=== PATIENT | female | born 1960 | race African-American/Black ===

== ENCOUNTER 2020-02-23 21:58 | Inpatient (IN) | payer BC ==
[2020-02-23] MEDS ORDERED: ALPRAZolam 1 MG TABLET PO PRN (22:17)
[2020-02-23] MEDS ORDERED: ALPRAZolam 0.25 MG TABLET ONE (22:23)
[2020-02-23 23:11] LABS: ALBUMIN 3.3 g/dl (3.4-5.0); BILIRUBIN,TOTAL 0.5 mg/dl (0.2-1); CALCIUM 8.4 mg/dl (8.5-10); CREATININE 1.1 mg/dl (0.55-1.3); POTASSIUM 3.8 mmol/L (3.5-5.1); TOT PROT 6.2 g/dl (6.4-8.2)
[2020-02-23 23:27] LABS: EOS % 0.8 % (0-4.5); HEMATOCRIT 40.5 % (32.4-45.2); HEMOGLOBIN 12.4 GM/dl (10.7-15.3); LYMPH % 19.2 % (8-40); MCH 24.7 pg (25.7-33.7); MCHC 30.5 g/dl (32.0-36.0); MONO % 11.2 % (3.8-10.2); NEUT % 67.8 % (42.8-82.8); PLATELET COUNT 222 K/MM3 (134-434); RDW 15.1 % (11.6-15.6); WHITE BLOOD COUNT 5.2 K/mm3 (4.0-10.8)
[2020-02-24 01:41] VITALS: BMI 39.9
[2020-02-24] MEDS ORDERED: metFORMIN HCL 500 MG TABLET (FP) PO SCH (07:00)
[2020-02-24 08:59] LABS: CALCIUM 8.2 mg/dl (8.5-10); POTASSIUM 4.3 mmol/L (3.5-5.1)
[2020-02-24 10:27] LABS: BASO % 0.8 % (0-2.0); HEMATOCRIT 39.3 % (32.4-45.2); HEMOGLOBIN 12.3 GM/dl (10.7-15.3); MCH 25.3 pg (25.7-33.7); MCHC 31.2 g/dl (32.0-36.0); MEAN CELL VOLUME 80.9 fl (80-96); MEAN PLT VOLUME 8.7 fl (7.5-11.1); MONO % 13.4 % (3.8-10.2); NEUT % 57.8 % (42.8-82.8); PLATELET COUNT 207 K/MM3 (134-434); RBC 4.86 M/mm3 (3.60-5.2); RDW 14.6 % (11.6-15.6); WHITE BLOOD COUNT 4.5 K/mm3 (4.0-10.8)
[2020-02-24] MEDS: ENOXAPARIN NA (PORCINE) 40 MG/0.4 ML DISP.SYRIN SQ SCH (10:40)
[2020-02-24] MEDS: INSULIN SLIDING SCALE (NOVOLOG) 1 VIAL SQ SCH ×3 (11:28→21:58)
[2020-02-24 11:49] LABS: N-TERMINAL BNP 597.6 pg/ml (5-125)
[2020-02-24] MEDS ORDERED: ALPRAZolam 0.25 MG TABLET PO ONE (14:35)
[2020-02-24] MEDS: ASPIRIN COATED 81 MG TABLET.EC PO SCH (15:00)
[2020-02-24] MEDS: metoPROLOL SUCCINATE 25 MG TAB.SR.24H (FP) PO SCH (15:00)
[2020-02-24] MEDS ORDERED: ROSUVASTATIN CA 10 MG TABLET (FP) PO SCH (22:00)
[2020-02-24] MEDS ORDERED: MONTELUKAST NA 10 MG TABLET PO SCH (22:00)
[2020-02-25] MEDS: INSULIN SLIDING SCALE (NOVOLOG) 1 VIAL SQ SCH ×3 (06:05→16:18)
[2020-02-25 08:51] LABS: MCH 25.3 pg (25.7-33.7); MCHC 31.6 g/dl (32.0-36.0); MEAN CELL VOLUME 80.1 fl (80-96); MEAN PLT VOLUME 8.9 fl (7.5-11.1); PLATELET COUNT 200 K/MM3 (134-434); RBC 4.74 M/mm3 (3.60-5.2); RDW 14.8 % (11.6-15.6); WHITE BLOOD COUNT 4.9 K/mm3 (4.0-10.8)
[2020-02-25] MEDS: ASPIRIN COATED 81 MG TABLET.EC PO SCH (09:04)
[2020-02-25] MEDS: ROSUVASTATIN CA 20 MG TABLET (FP) PO SCH (09:04)
[2020-02-25] MEDS: metoPROLOL SUCCINATE 25 MG TAB.SR.24H (FP) PO SCH (09:04)
[2020-02-25] MEDS: MULTIVITAMINS THER W-MINERALS COMBO TABLET (FP) PO SCH (09:04)
[2020-02-25] MEDS: ENOXAPARIN NA (PORCINE) 40 MG/0.4 ML DISP.SYRIN SQ SCH (09:04)
[2020-02-25] MEDS ORDERED: SODIUM CHLORIDE 1,000 ML IV SCH (17:45)
[2020-02-26] MEDS: INSULIN SLIDING SCALE (NOVOLOG) 1 VIAL SQ SCH ×3 (06:03→21:22)
[2020-02-26 08:34] LABS: BILIRUBIN,TOTAL 0.4 mg/dl (0.2-1); CALCIUM 8.5 mg/dl (8.5-10); CREATININE 1.1 mg/dl (0.55-1.3); MAGNESIUM 1.9 mg/dL (1.8-2.4); POTASSIUM 4.5 mmol/L (3.5-5.1); TOT PROT 5.7 g/dl (6.4-8.2)
[2020-02-26 09:19] LABS: BASO % 1.3 % (0-2.0); EOS % 2.6 % (0-4.5); LYMPH % 30.3 % (8-40); MCH 25.6 pg (25.7-33.7); MCHC 31.3 g/dl (32.0-36.0); MEAN CELL VOLUME 81.9 fl (80-96); MEAN PLT VOLUME 9.1 fl (7.5-11.1); MONO % 13.6 % (3.8-10.2); NEUT % 52.2 % (42.8-82.8); PLATELET COUNT 208 K/MM3 (134-434); RBC 4.64 M/mm3 (3.60-5.2); RDW 14.8 % (11.6-15.6); WHITE BLOOD COUNT 4.6 K/mm3 (4.0-10.8)
[2020-02-26 09:23] LABS: HEMOGLOBIN 11.9 GM/dl (10.7-15.3)
[2020-02-26] MEDS: ENOXAPARIN NA (PORCINE) 40 MG/0.4 ML DISP.SYRIN SQ SCH ×2 (10:00→16:03)
[2020-02-26] MEDS: ROSUVASTATIN CA 20 MG TABLET (FP) PO SCH ×2 (10:00→15:59)
[2020-02-26] MEDS: ASPIRIN COATED 81 MG TABLET.EC PO SCH ×2 (10:00→15:52)
[2020-02-26] MEDS: MULTIVITAMINS THER W-MINERALS COMBO TABLET (FP) PO SCH ×2 (10:01→16:00)
[2020-02-26] MEDS: metoPROLOL SUCCINATE 25 MG TAB.SR.24H (FP) PO SCH (10:01)
[2020-02-26] MEDS: VALSARTAN 40 MG TABLET PO SCH (16:05)
[2020-02-27] MEDS: INSULIN SLIDING SCALE (NOVOLOG) 1 VIAL SQ SCH (06:51)
[2020-02-27] MEDS ORDERED: metoPROLOL SUCCINATE 25 MG TAB.SR.24H (FP) PO SCH (09:15)
[2020-02-27 09:47] VITALS: BP 134/81; PULSE 105; TEMP 98
[2020-02-27] MEDS: VALSARTAN 40 MG TABLET PO SCH (09:48)
[2020-02-27] MEDS: ROSUVASTATIN CA 20 MG TABLET (FP) PO SCH (09:49)
[2020-02-27] MEDS: MULTIVITAMINS THER W-MINERALS COMBO TABLET (FP) PO SCH (09:49)
[2020-02-27] MEDS: ASPIRIN COATED 81 MG TABLET.EC PO SCH (09:49)
[2020-02-27] MEDS: ENOXAPARIN NA (PORCINE) 40 MG/0.4 ML DISP.SYRIN SQ SCH (09:50)
== END 2020-02-27 11:46 | disposition home or self-care (01) | DRG 303 ==
LOC: FER 21:58 → FM/S 23:37 → UNDOADMIN 02-24 00:06 → FM/S 02-24 00:06
PROVIDERS: ADMIT Internal Medicine; ATTEND Nurse Practitioner Acute Care
DX: I25.5 Ischemic cardiomyopathy (principal); R00.0 Tachycardia, unspecified; R94.31 Abnormal electrocardiogram [ECG] [EKG]; R06.02 Shortness of breath; E11.9 Type 2 diabetes mellitus without complications; R07.9 Chest pain, unspecified; E66.9 Obesity, unspecified; E78.00 Pure hypercholesterolemia, unspecified; Z68.39 Body mass index [BMI] 39.0-39.9, adult
CPT/HCPCS: 36415; 71045-TC-FY; 71275-TC; 78452-TC; 80048; 80053; 82550; 82962; 83036; 83735; 83880; 84443; 84484; 85025; 85027; 85379; 93005; 93017; 93306-TC; 93970-TC; 99285-25; A9502; C9803; Q9967; U0003

== ENCOUNTER 2023-12-31 11:01 | Emergency (ER) | payer BC ==
[2023-12-31 11:20] VITALS: BP 107/68; PULSE 91; RESP 18; TEMP 98.1; BMI 35.2
[2023-12-31] MEDS ORDERED: ACETAMINOPHEN 1000 MG/100 ML BAG IVPB ONE (11:22)
[2023-12-31] MEDS ORDERED: FAMOTIDINE 20 MG/50 ML IVPB 20 MG/50 ML MG IVPB ONE (11:22)
[2023-12-31] MEDS ORDERED: MAG HYDROX/AL HYDROX/SIMETH 30 ML UNIT-DOSE CUP PO ONE (11:22)
[2023-12-31 12:12] LABS: HEMATOCRIT 45.1 % (32.4-45.2); HEMOGLOBIN 13.7 G/dL (10.7-15.3); MCH 26.8 pg (25.7-33.7); MCHC 30.3 g/dl (32.0-36.0); MEAN CELL VOLUME 88.4 fl (80-96); MEAN PLT VOLUME 8.6 fl (7.5-11.1); PLATELET COUNT 217.9 10^3/uL (134-434); RDW 15.7 % (11.6-15.6); WHITE BLOOD COUNT 5.8 10^3/uL (4.0-10.8)
[2023-12-31 12:26] LABS: CREATININE 0.9 mg/dl (0.6-1.3)
[2023-12-31 12:27] LABS: ALBUMIN 3.9 g/dl (3.4-5.0); BILIRUBIN,TOTAL 0.5 mg/dl (0.2-1); CALCIUM 9.1 mg/dl (8.5-10.1); MAGNESIUM 1.9 mg/dL (1.8-2.4); TOT PROT 6.3 g/dl (6.4-8.2)
[2023-12-31 12:44] LABS: INR 1.02 (0.83-1.09); PROTHROMBIN TIME (PATIENT) 11.6 SEC (9.7-13.0)
[2023-12-31 12:47] LABS: ACTIVATED PTT 33.6 SECONDS (25.2-36.5)
[2023-12-31 12:49] LABS: PLATELET ESTIMATE ADEQUATE
[2023-12-31] MEDS ORDERED: ACETAMINOPHEN 500 MG TABLET (FP) ONE (13:15)
[2023-12-31] MEDS ORDERED: FAMOTIDINE 20 MG TABLET ONE (13:15)
[2023-12-31] MEDS ORDERED: MAG HYDROX/AL HYDROX/SIMETH 30 ML UNIT-DOSE CUP ONE (13:15)
[2023-12-31] MEDS: MAG HYDROX/AL HYDROX/SIMETH -MYLANTA- ORAL SUSPENSION PO ONE (13:23)
[2023-12-31] MEDS: ACETAMINOPHEN 500 MG TABLET (FP) PO ONE (13:23)
[2023-12-31] MEDS: FAMOTIDINE 10 MG TABLET PO ONE (13:23)
[2023-12-31 14:10] LABS: N-TERMINAL BNP 15.5 pg/ml (5-125)
== END 2023-12-31 14:02 | disposition home or self-care (01) ==
LOC: FER 11:01
DX: R07.2 Precordial pain (principal)
CPT/HCPCS: 36415; 71045-TC-FY; 80053; 82550; 83735; 83880; 84484; 85027; 85610; 85730; 86850; 86900; 86901; 93005; 99285-25